=== PATIENT | female | born 1945 | race Caucasian/White ===

== ENCOUNTER 2018-11-21 10:55 | Outpatient (CLI) | payer MEDICARE | END 2018-11-21 23:59 | disposition home or self-care (01) | LOC: CARD DIAG 10:55 | PROVIDERS: ATTEND Internal Medicine Cardiovascular Disease | DX: I08.8 Other rheumatic multiple valve diseases (principal); Z87.891 Personal history of nicotine dependence | CPT/HCPCS: 93306 ==

== ENCOUNTER 2018-12-07 06:01 | Day surgery (SDC) | payer MEDICARE ==
[2018-12-06 12:14] LABS: BASOPHILS % (AUTO) 0.6 % (0-1); EOSINOPHILS # (AUTO) 0.2 X10'3 (0-0.9); EOSINOPHILS % (AUTO) 3.8 % (0-6); HEMOGLOBIN 13.8 g/dl (12.0-16.0); LYMPHOCYTES # (AUTO) 1.4 X10'3 (1.1-4.8); LYMPHOCYTES % (AUTO) 23.2 % (21-51); MEAN CORPUSCULAR HEMOGLOBIN 29.6 PG (27.0-31.0); MEAN CORPUSCULAR HGB CONC 32.9 g/dL (33.0-36.5); MEAN CORPUSCULAR VOLUME 89.8 FL (78-98); MEAN PLATELET VOLUME 8.1 FL (7.4-10.4); MONOCYTES # (AUTO) 0.5 X10'3 (0-0.9); MONOCYTES % (AUTO) 8.3 % (2-12); NEUTROPHILS # (AUTO) 3.7 X10'3 (1.8-7.7); NEUTROPHILS % (AUTO) 64.1 % (42-75); PLATELET COUNT 292 X10'3 (140-440); RED BLOOD COUNT 4.68 X10'6 (4.20-5.60); RED CELL DISTRIBUTION WIDTH 15.2 % (11.5-14.5); WHITE BLOOD COUNT 5.8 X10'3 (4.5-11.0)
[2018-12-06 12:28] LABS: PARTIAL THROMBOPLASTIN TIME 30 SECONDS (22-32)
[2018-12-06 12:39] LABS: ALBUMIN 3.3 G/DL (3.4-5.0); ANION GAP 7 (8-16); BLOOD UREA NITROGEN 22 MG/DL (7-18); BUN/CREATININE RATIO 34.9 (6.6-38.0); CALCIUM 8.6 MG/DL (8.5-10.1); CHLORIDE 108 MMOL/L (99-107); CREATININE 0.63 MG/DL (0.40-0.90); GLUCOSE 60 MG/DL (70-104); POTASSIUM 3.9 MMOL/L (3.5-5.1); SODIUM 144 MMOL/L (135-145); TOTAL CARBON DIOXIDE 29.5 MMOL/L (24-32); eGFR > 90 ML/MIN
[~2018-12-07] VITALS: Ht 162.6 cm; Wt 80.1 kg
[2018-12-07] VITALS (13 sets, daily range): BP systolic 117–144; BP diastolic 59–83
[2018-12-07] MEDS ORDERED: LORazepam 0.5 MG tablet PO PRN (06:20)
[2018-12-07] MEDS ORDERED: normal saline 1,000 ML IV SCH ×2 (06:20→09:35)
[2018-12-07] MEDS ORDERED: LIDOcaine/PRILOcaine 5gm cream TP ONE (06:20)
[2018-12-07] MEDS ORDERED: diphenhydrAMINE 25mg capsule PO PRN (06:20)
[2018-12-07] MEDS ORDERED: OMEP20CA10 PO (06:30)
[2018-12-07] MEDS ORDERED: LACT1CAP65 PO (06:30)
[2018-12-07] MEDS ORDERED: ENZY1CAP5 PO (06:30)
[2018-12-07] MEDS ORDERED: OCUVITE PO (06:30)
[2018-12-07] MEDS ORDERED: CALC-212 PO (06:30)
[2018-12-07] MEDS ORDERED: SUMA50TA PO (06:30)
[2018-12-07] MEDS ORDERED: ASCO500C15 PO (06:30)
[2018-12-07] MEDS ORDERED: LIDOcaine 1% (10mg/ml)w/preservative injection 20ml MDV ONE (07:30)
[2018-12-07] MEDS ORDERED: verapamil 2.5 mg/ml inj IV ONE (07:30)
[2018-12-07] MEDS ORDERED: fentaNYL/PF 50MCG/1 ML 2ML syringe ONE (07:30)
[2018-12-07] MEDS ORDERED: nitroGLYCERIN-Tridil 50MG/D5W 250 ML IV ONE (07:30)
[2018-12-07] MEDS ORDERED: midazolam 2 mg/2 ml injection ONE (07:30)
[2018-12-07] MEDS ORDERED: iohexol 350MG/ML 100ml bottle IV ONE (07:31)
[2018-12-07] MEDS ORDERED: iohexol 350 MG/ML 50ML vial IV ONE (07:31)
[2018-12-07] MEDS ORDERED: heparin 1,000unit/ml 10ml vial 10 ML ONE (07:31)
[2018-12-07 10:35] LABS: ISTAT Hct MIX 41 %PCV (35-48); ISTAT O2 SATURATION MIX VENOUS 71 % (60-80); ISTAT SOURCE MIX
[2018-12-07 10:40] LABS: ISTAT HGB ART 13.9 g/dl (12.0-16.0); ISTAT Hct ART 41 %PCV (35-48); ISTAT O2 SATURATION ARTERIAL 93 % (95-98); ISTAT SOURCE ART
== END 2018-12-07 15:00 | disposition home or self-care (01) ==
LOC: SSTAY O 06:01
PROVIDERS: ATTEND Internal Medicine Cardiovascular Disease
DX: I25.10 Atherosclerotic heart disease of native coronary artery without angina pectoris (principal); I47.2 Ventricular tachycardia; Z79.899 Other long term (current) drug therapy; Z98.890 Other specified postprocedural states; Z96.649 Presence of unspecified artificial hip joint; Z87.891 Personal history of nicotine dependence
CPT/HCPCS: 36415; 80048; 82803; 85014; 85025; 85610; 85730; 93005; 93460; 99152; 99153; J1644; J2001; J2250; J3010; J7030; Q0163; Q9967; A4620; C1769; J3490

== ENCOUNTER 2024-04-18 06:48 | Day surgery (SDC) | payer MEDICARE ==
[2024-04-17 14:24] LABS: BASOPHILS % (AUTO) 0.6 % (0-1); EOSINOPHILS # (AUTO) 0.2 X10'3 (0-0.9); EOSINOPHILS % (AUTO) 4.2 % (0-6); HEMATOCRIT 38.9 % (35.0-45.0); HEMOGLOBIN 12.6 g/dl (12.0-16.0); LYMPHOCYTES # (AUTO) 1.3 X10'3 (1.1-4.8); LYMPHOCYTES % (AUTO) 23.5 % (21-51); MEAN CORPUSCULAR HEMOGLOBIN 29.3 PG (27.0-31.0); MEAN CORPUSCULAR HGB CONC 32.5 g/dL (33.0-36.5); MONOCYTES # (AUTO) 0.4 X10'3 (0-0.9); MONOCYTES % (AUTO) 7.7 % (2-12); NEUTROPHILS # (AUTO) 3.5 X10'3 (1.8-7.7); PLATELET COUNT 277 X10'3 (140-440); RED BLOOD COUNT 4.32 X10'6 (4.20-5.60); WHITE BLOOD COUNT 5.5 X10'3 (4.5-11.0)
[2024-04-17 14:27] LABS: APTT 28 SECONDS (22-32); PROTHROMBIN TIME 10.7 SECONDS (9.0-12.0)
[2024-04-17 14:28] LABS: ALBUMIN 3.3 G/DL (3.4-5.0); ANION GAP 5 (8-16); BLOOD UREA NITROGEN 21 MG/DL (7-18); BUN/CREATININE RATIO 37.5 (10.0-20.0); CALCIUM 8.6 MG/DL (8.5-10.1); CHLORIDE 109 MMOL/L (99-107); CREATININE 0.56 MG/DL (0.40-0.90); GLUCOSE 90 MG/DL (70-104); POTASSIUM 3.9 MMOL/L (3.5-5.1); SODIUM 143 MMOL/L (135-145); TOTAL CARBON DIOXIDE 28.7 MMOL/L (24-32); eGFR > 90 ML/MIN
[2024-04-18] VITALS (12 sets, daily range): BP systolic 122–147; BP diastolic 59–102; PULSE 43–60; RESP 10–16; TEMP 97.6; O2SAT 93–98
[~2024-04-18] VITALS: Ht 162.6 cm; Wt 91.4 kg
[~2024-04-18 06:48] MED LIST: ASCO500C18 PO; CALC-212 PO; ENZY1CAP5 PO; LACT1CAP65 PO; OCUVITE PO; OMEP20CA15 PO; SUMA50TA PO
[2024-04-18] MEDS ORDERED: VIT1CAPS9 PO (08:26)
[2024-04-18] MEDS ORDERED: CALC1TAB77 PO (08:26)
[2024-04-18] MEDS ORDERED: LOSA-415 PO (08:28)
[2024-04-18] MEDS ORDERED: CARV-49 PO (08:29)
[2024-04-18] MEDS: normal saline 1,000 ML IV SCH (08:33)
[2024-04-18] MEDS: diphenhydrAMINE 25mg capsule PO PRN (08:33)
[2024-04-18] MEDS: LORazepam 0.5 MG tablet PO PRN (08:33)
[2024-04-18] MEDS ORDERED: fentaNYL/PF 50MCG/1 ML 2ML syringe ONE (08:57)
[2024-04-18] MEDS ORDERED: iohexol 350MG/ML 100ml bottle IV ONE ×2 (08:57→09:40)
[2024-04-18] MEDS ORDERED: midazolam 1 mg/ML 2ml injection ONE (08:57)
[2024-04-18] MEDS ORDERED: verapamil 2.5 mg/ml inj IV ONE (08:57)
[2024-04-18] MEDS ORDERED: heparin 1,000unit/ml 10ml vial 10 ML ONE (08:57)
[2024-04-18] MEDS ORDERED: iohexol 350 MG/ML 50ML vial IV ONE (08:57)
[2024-04-18] MEDS ORDERED: LIDOcaine 1% 30ml preserv. free vial ONE (08:57)
[2024-04-18] MEDS ORDERED: nitroGLYCERIN 500mcg/5mL D5W 5 ML IV ONE (08:58)
[2024-04-18] MEDS ORDERED: normal saline 1000ml 1,000 ML IV ONE (10:50)
[2024-04-18 11:18] LABS: ISTAT HGB MIX 12.9 g/dl (12.0-16.0); ISTAT Hct MIX 38 %PCV (35-45); ISTAT O2 SATURATION MIX VENOUS 73 % (60-80); ISTAT SOURCE BLNK
[2024-04-30 08:28] LABS: ISTAT HGB ART 12.6 g/dl (12.0-16.0); ISTAT Hct ART 37 %PCV (35-45); ISTAT O2 SATURATION ARTERIAL 94 % (95-98); ISTAT SOURCE BLNK
== END 2024-04-18 15:30 | disposition home or self-care (01) ==
LOC: SSTAY O 06:48
PROVIDERS: ATTEND Internal Medicine Cardiovascular Disease
DX: I25.10 Atherosclerotic heart disease of native coronary artery without angina pectoris (principal); I45.10 Unspecified right bundle-branch block; I27.20 Pulmonary hypertension, unspecified; Z79.899 Other long term (current) drug therapy; Z90.721 Acquired absence of ovaries, unilateral; Z96.642 Presence of left artificial hip joint; Z98.890 Other specified postprocedural states; Z88.5 Allergy status to narcotic agent; Z82.49 Family history of ischemic heart disease and other diseases of the circulatory system
CPT/HCPCS: 36415; 80048; 82803; 85014; 85025; 85610; 85730; 93005; 93460; 99152; 99153; A6258; A6402; C1725; C1751; C1894; J1644; J2001; J2250; J3010; J3490; J7030; Q0163; Q9967; Z7610; 76937